=== PATIENT | female | born 1965 | race Caucasian/White ===

== ENCOUNTER 2018-09-23 09:36 | Outpatient (CLI) | payer OTHER ==
--- NOTE | 2018-09-23 10:50 | ULT ---
ULTRASOUND SOFT TISSUE: HISTORY: Swollen lymph nodes. COMPARISON: None. FINDINGS: At the area of interest, there appears to be a lymph node, measuring 1.6 cm in length and 8 mm in AP dimension. This does have an abnormal increased echotexture at the hilum. IMPRESSION: Abnormal appearance of a possible lymph node in the submandibular region. CT with contrast recommend ed. POS: [facility]
== END 2018-09-23 09:37 | disposition home or self-care (01) ==
LOC: MADULT 09:36
PROVIDERS: ATTEND Family Medicine
DX: L04.9 Acute lymphadenitis, unspecified (principal)
CPT/HCPCS: 76999